=== PATIENT | male | born 1955 | race Caucasian/White ===

== ENCOUNTER 2016-10-19 21:46 | Emergency (ER) | payer BC ==
[~2016-10-19] VITALS: Ht 170.1 cm; Wt 65.8 kg
[2016-10-19] MEDS ORDERED: EPIPEN 2-PAK1 MG/ML IJ (23:48)
== END 2016-10-20 00:36 | disposition home or self-care (01) ==
LOC: ED 21:46
DX: T63.441A Toxic effect of venom of bees, accidental (unintentional), initial encounter (principal); L25.8 Unspecified contact dermatitis due to other agents; Y92.9 Unspecified place or not applicable

== ENCOUNTER → 2018-06-02 | Outpatient (CLI) | payer OTHER ==
[~2018-06-02] MED LIST: EPIPEN 2-PAK1 MG/ML IJ
== END | disposition home or self-care (01) ==
LOC: MRI 13:40
DX: M19.012 Primary osteoarthritis, left shoulder (principal); S46.212A Strain of muscle, fascia and tendon of other parts of biceps, left arm, initial encounter; X58.XXXA Exposure to other specified factors, initial encounter; Y93.89 Activity, other specified; Y92.89 Other specified places as the place of occurrence of the external cause; Y99.8 Other external cause status